=== PATIENT | female | born 1940 | race Caucasian/White ===

== ENCOUNTER 2017-07-21 14:08 | Emergency (ER) | payer OTHER ==
[2017-07-21 14:29] VITALS: BP 146/96
== END 2017-07-21 15:55 | disposition home or self-care (01) ==
LOC: ED 14:08
DX: R10.13 Epigastric pain (principal); E11.9 Type 2 diabetes mellitus without complications; I10 Essential (primary) hypertension; M19.90 Unspecified osteoarthritis, unspecified site; Z79.84 Long term (current) use of oral hypoglycemic drugs

== ENCOUNTER 2017-10-21 10:16 | Emergency (ER) | payer OTHER ==
[~2017-10-21] VITALS: Ht 160 cm; Wt 77.1 kg
[2017-10-21 10:32] VITALS: Ht 160 cm; Wt 77.1 kg
[2017-10-21 13:01] VITALS: BP 133/66
== END 2017-10-21 13:00 | disposition home or self-care (01) ==
LOC: ED 10:16
DX: G89.29 Other chronic pain (principal); M54.5 Low back pain; J45.909 Unspecified asthma, uncomplicated; I10 Essential (primary) hypertension; E11.9 Type 2 diabetes mellitus without complications; E07.9 Disorder of thyroid, unspecified; E78.00 Pure hypercholesterolemia, unspecified; M19.90 Unspecified osteoarthritis, unspecified site; M54.30 Sciatica, unspecified side
CPT/HCPCS: J3010; Q0162

== ENCOUNTER 2017-12-05 22:30 | Emergency (ER) | payer OTHER ==
[~2017-12-05] VITALS: Ht 167.6 cm; Wt 76.3 kg
[2017-12-05 23:02] VITALS: Ht 167.6 cm; Wt 76.3 kg
[2017-12-06 01:05] VITALS: BP 154/62
[2017-12-07] MEDS ORDERED: VALIUM2 MG PO (14:06)
[2017-12-07] MEDS ORDERED: DIOVAN160 MG PO (14:07)
[2017-12-07] MEDS ORDERED: LEVOTHYROXINE0.05 M2 PO (14:07)
[2017-12-07] MEDS ORDERED: ASPIRIN325 MG PO (14:07)
[2017-12-07] MEDS ORDERED: OTEZLA30 MG PO (14:08)
[2017-12-07] MEDS ORDERED: DILTIAZEM HCL30 MG PO (14:08)
[2017-12-07] MEDS ORDERED: MYRBETRIQ50 MG PO (14:08)
[2017-12-07] MEDS ORDERED: RANITIDINE HCL300 MG PO (14:09)
[2017-12-07] MEDS ORDERED: ATORVASTATIN CA40 M1 PO (14:10)
[2017-12-07] MEDS ORDERED: METFORMIN HCL500 MG PO (14:10)
== END 2017-12-06 01:05 | disposition home or self-care (01) ==
LOC: ED 22:30
DX: J18.1 Lobar pneumonia, unspecified organism (principal); M54.9 Dorsalgia, unspecified; I10 Essential (primary) hypertension; E11.9 Type 2 diabetes mellitus without complications; J45.909 Unspecified asthma, uncomplicated; E78.00 Pure hypercholesterolemia, unspecified; E07.9 Disorder of thyroid, unspecified; M19.90 Unspecified osteoarthritis, unspecified site
CPT/HCPCS: Q0092

== ENCOUNTER 2017-12-07 12:17 | Inpatient (IN) | payer OTHER ==
[~2017-12-07] VITALS: Ht 160 cm; Wt 82.8 kg
[2017-12-07 12:23] VITALS: Ht 160 cm; Wt 82.8 kg
[2017-12-07 12:52] LABS: BASOPHIL % 0.6 % (0-2); PLATELET COUNT 266 x10^3mcL (130-400)
[2017-12-07 12:54] LABS: RED CELL DISTRIBUTION WIDTH 16.3 % (11.5-14.5)
[2017-12-07 12:57] LABS: CARBON DIOXIDE 34.9 mmol/L (21-32); CHLORIDE SERUM 95 mmol/L (98-107); CREATININE SERUM 0.8 mg/dL (0.6-1.0); GLUCOSE SERUM 93 mg/dL (74-106); SODIUM SERUM 132 mmol/L (136-145)
[2017-12-07 13:02] LABS: ALBUMIN 3.4 g/dL (3.4-5.0); ALKALINE PHOSPHATASE 81 U/L (46-116); ALT/SGPT 25 U/L (14-59); AST/SGOT 20 U/L (15-37); BILIRUBIN TOTAL 0.4 mg/dL (0.20-1.00); TOTAL PROTEIN, SERUM 7.8 g/dL (6.4-8.2)
[2017-12-07 13:49] LABS: microscopic required? NO
[2017-12-07 14:05] LABS: urine erythrocyte NEGATIVE (NEGATIVE)
[2017-12-07] MEDS ORDERED: VALIUM2 MG PO (14:06)
[2017-12-07] MEDS ORDERED: LEVOTHYROXINE0.05 M2 PO (14:07)
[2017-12-07] MEDS ORDERED: ASPIRIN325 MG PO (14:07)
[2017-12-07] MEDS ORDERED: DIOVAN160 MG PO (14:07)
[2017-12-07] MEDS ORDERED: MYRBETRIQ50 MG PO (14:08)
[2017-12-07] MEDS ORDERED: OTEZLA30 MG PO (14:08)
[2017-12-07] MEDS ORDERED: DILTIAZEM HCL30 MG PO (14:08)
[2017-12-07] MEDS ORDERED: RANITIDINE HCL300 MG PO (14:09)
[2017-12-07] MEDS ORDERED: METFORMIN HCL500 MG PO (14:10)
[2017-12-07] MEDS ORDERED: ATORVASTATIN CA40 M1 PO (14:10)
[2017-12-07 14:53] VITALS: BP 153/65
[2017-12-07 15:02] LABS: MAGNESIUM 1.8 mg/dL (1.8-2.4); PHOSPHOROUS 3.9 mg/dL (2.5-4.9)
[2017-12-07 15:03] LABS: CHOLESTEROL/HDL RATIO 2.4
[2017-12-07 15:08] LABS: T3 TOTAL 1.04 ng/mL
[2017-12-07 15:11] LABS: FREE T4 1.16 ng/dL (0.76-1.46); FREE THYROXINE INDEX 3.5 ug/dL (1.4-4.5); T4(THYROXINE) 11.3 ug/dL (4.7-13.3)
[2017-12-07 16:52] VITALS: BP 108/60
[2017-12-07 21:09] VITALS: BP 141/59
[2017-12-08 06:09] VITALS: BP 137/64
[2017-12-08 07:20] LABS: BASOPHIL % 0.6 % (0-2); PLATELET COUNT 208 x10^3mcL (130-400)
[2017-12-08 07:22] LABS: RED CELL DISTRIBUTION WIDTH 16.7 % (11.5-14.5)
[2017-12-08 07:51] LABS: CALCIUM 8.3 mg/dL (8.5-10.1); CARBON DIOXIDE 29.9 mmol/L (21-32); CHLORIDE SERUM 102 mmol/L (98-107); CREATININE SERUM 0.5 mg/dL (0.6-1.0); GLUCOSE SERUM 73 mg/dL (74-106); POTASSIUM SERUM 3.3 mmol/L (3.5-5.1); SODIUM SERUM 136 mmol/L (136-145)
[2017-12-08 07:52] LABS: MAGNESIUM 1.8 mg/dL (1.8-2.4); PHOSPHOROUS 3.4 mg/dL (2.5-4.9)
[2017-12-08 09:57] VITALS: BP 138/62
[2017-12-08 14:02] VITALS: BP 168/69
[2017-12-08 14:10] VITALS: BP 168/69
[2017-12-08 17:27] VITALS: BP 164/73
[2017-12-08 21:46] VITALS: BP 155/69
[2017-12-09 06:39] VITALS: BP 137/59
[2017-12-09 06:46] LABS: CALCIUM 7.9 mg/dL (8.5-10.1); CARBON DIOXIDE 28.1 mmol/L (21-32); CHLORIDE SERUM 105 mmol/L (98-107); CREATININE SERUM 0.5 mg/dL (0.6-1.0); GLUCOSE SERUM 96 mg/dL (74-106); POTASSIUM SERUM 3.3 mmol/L (3.5-5.1); SODIUM SERUM 135 mmol/L (136-145)
[2017-12-09 07:21] LABS: BASOPHIL % 0.8 % (0-2); PLATELET COUNT 215 x10^3mcL (130-400)
[2017-12-09 07:28] LABS: RED CELL DISTRIBUTION WIDTH 16.8 % (11.5-14.5)
[2017-12-09 08:40] VITALS: BP 147/69
[2017-12-09 13:15] VITALS: BP 147/74
[2017-12-09 18:02] VITALS: BP 140/57
[2017-12-09 21:12] VITALS: BP 164/77
[2017-12-10 05:51] VITALS: BP 167/57
[2017-12-10 06:57] VITALS: BP 167/70
[2017-12-10 07:02] LABS: CALCIUM 8.5 mg/dL (8.5-10.1); CARBON DIOXIDE 28.9 mmol/L (21-32); CHLORIDE SERUM 100 mmol/L (98-107); CREATININE SERUM 0.5 mg/dL (0.6-1.0); GLUCOSE SERUM 99 mg/dL (74-106); POTASSIUM SERUM 3.5 mmol/L (3.5-5.1); SODIUM SERUM 135 mmol/L (136-145)
[2017-12-10 07:03] LABS: BASOPHIL % 0.5 % (0-2); PLATELET COUNT 244 x10^3mcL (130-400)
[2017-12-10 07:07] LABS: RED CELL DISTRIBUTION WIDTH 16.4 % (11.5-14.5)
[2017-12-10 09:40] VITALS: BP 177/81
[2017-12-10 12:39] VITALS: BP 168/68
[2017-12-10 15:35] VITALS: BP 165/76
[2017-12-10 15:41] VITALS: BP 165/76
[2017-12-10] MEDS ORDERED: LAC PO (17:19)
[2017-12-10] MEDS ORDERED: LEVOFLOXACIN500 M1 PO (17:19)
[2017-12-10] MEDS ORDERED: TES100 PO (17:21)
== END 2017-12-10 19:11 | disposition home or self-care (01) | DRG 177 ==
LOC: ED 12:17 → DU 13:42 → MU 12-10 14:21
PROVIDERS: Emergency Medicine; Family Medicine; Student in an Organized Health Care Education/Training Program
DX: J69.0 Pneumonitis due to inhalation of food and vomit (principal); N17.0 Acute kidney failure with tubular necrosis; E87.1 Hypo-osmolality and hyponatremia; J45.901 Unspecified asthma with (acute) exacerbation; K21.9 Gastro-esophageal reflux disease without esophagitis; I16.0 Hypertensive urgency; I10 Essential (primary) hypertension; E87.6 Hypokalemia; E11.9 Type 2 diabetes mellitus without complications; M19.90 Unspecified osteoarthritis, unspecified site; E03.9 Hypothyroidism, unspecified; E78.00 Pure hypercholesterolemia, unspecified; E66.9 Obesity, unspecified; Z68.32 Body mass index [BMI] 32.0-32.9, adult; Z79.82 Long term (current) use of aspirin; Z79.84 Long term (current) use of oral hypoglycemic drugs
CPT/HCPCS: 82962; 83880; 84439; 94150; J1956; J3480; J3490; J7030; J7613; J7620; J7626; J7644; Q0092

== ENCOUNTER 2019-03-08 13:14 | Emergency (ER) | payer OTHER ==
[~2019-03-08] VITALS: Ht 160 cm; Wt 79.4 kg
[~2019-03-08 13:14] MED LIST: ASPIRIN325 MG PO; ATORVASTATIN CA40 M1 PO; DILTIAZEM HCL30 MG PO; DIOVAN160 MG PO; LAC PO; LEVOFLOXACIN500 M1 PO; LEVOTHYROXINE0.05 M2 PO; METFORMIN HCL500 MG PO; MYRBETRIQ50 MG PO; OTEZLA30 MG PO; RANITIDINE HCL300 MG PO; TES100 PO; VALIUM2 MG PO
[2019-03-08 13:17] VITALS: Ht 160 cm; Wt 79.4 kg
[2019-03-08 13:59] LABS: BASOPHIL % 0.5 % (0-2); PLATELET COUNT 293 x10^3mcL (130-400)
[2019-03-08 14:02] LABS: CALCIUM 9.6 mg/dL (8.5-10.1); CARBON DIOXIDE 30.9 mmol/L (21-32); CHLORIDE SERUM 97 mmol/L (98-107); CREATININE SERUM 0.6 mg/dL (0.6-1.0); GLUCOSE SERUM 93 mg/dL (74-106); POTASSIUM SERUM 3.5 mmol/L (3.5-5.1); SODIUM SERUM 134 mmol/L (136-145)
[2019-03-08 14:06] LABS: RED CELL DISTRIBUTION WIDTH 15.4 % (11.5-14.5)
[2019-03-08 14:07] LABS: ALBUMIN 3.5 g/dL (3.4-5.0); ALKALINE PHOSPHATASE 116 U/L (46-116); ALT/SGPT 20 U/L (14-59); AST/SGOT 9 U/L (15-37); BILIRUBIN TOTAL 0.37 mg/dL (0.20-1.00); TOTAL PROTEIN, SERUM 7.7 g/dL (6.4-8.2)
[2019-03-08 14:49] LABS: microscopic required? NO
[2019-03-08 14:52] LABS: urine erythrocyte NEGATIVE (NEGATIVE)
[2019-03-08 15:43] VITALS: BP 135/78
== END 2019-03-08 15:43 | disposition home or self-care (01) ==
LOC: ED 13:14
PROVIDERS: Emergency Medicine
DX: R19.7 Diarrhea, unspecified (principal); R11.0 Nausea; R53.1 Weakness; I10 Essential (primary) hypertension; J45.909 Unspecified asthma, uncomplicated; E11.9 Type 2 diabetes mellitus without complications; M19.90 Unspecified osteoarthritis, unspecified site; E03.9 Hypothyroidism, unspecified; E78.00 Pure hypercholesterolemia, unspecified; Z90.89 Acquired absence of other organs; Z90.49 Acquired absence of other specified parts of digestive tract; Z98.890 Other specified postprocedural states
CPT/HCPCS: 87046; 87046-59; J7030

== ENCOUNTER 2019-10-23 07:08 | Day surgery (SDC) | payer OTHER ==
[~2019-10-23] VITALS: Ht 160 cm; Wt 78.9 kg
[2019-10-23 07:48] VITALS: BP 157/78
[2019-10-23 10:21] VITALS: BP 154/79
== END 2019-10-23 10:10 | disposition home or self-care (01) ==
LOC: GI 07:08 → OR 08:00 → GI 10:10
DX: K44.9 Diaphragmatic hernia without obstruction or gangrene (principal); K21.9 Gastro-esophageal reflux disease without esophagitis; K59.09 Other constipation; E03.9 Hypothyroidism, unspecified; F32.9 Major depressive disorder, single episode, unspecified; E78.00 Pure hypercholesterolemia, unspecified; J45.909 Unspecified asthma, uncomplicated; Z79.890 Hormone replacement therapy; Z85.828 Personal history of other malignant neoplasm of skin; Z79.82 Long term (current) use of aspirin; Z95.5 Presence of coronary angioplasty implant and graft; Z98.890 Other specified postprocedural states; Z90.89 Acquired absence of other organs; Z98.51 Tubal ligation status; Z90.49 Acquired absence of other specified parts of digestive tract
CPT/HCPCS: 43235; 87081; J1200; J1610; J2250; J2310; J3010; J3490